=== PATIENT | male | born 1990 | race African-American/Black ===

== ENCOUNTER 2024-12-23 21:18 | Emergency (ER) | payer OTHER ==
[~2024-12-23] VITALS: Ht 190.5 cm; Wt 77.1 kg
[2024-12-23 23:04] VITALS: BP 134/89; TEMP 98.1; O2SAT 97
== END 2024-12-23 23:06 | disposition home or self-care (01) ==
LOC: ER 21:23
DX: F10.129 Alcohol abuse with intoxication, unspecified (principal); Z79.899 Other long term (current) drug therapy; Y90.9 Presence of alcohol in blood, level not specified
CPT/HCPCS: 82962-TC